=== PATIENT | female | born 1950 | race Caucasian/White ===

== ENCOUNTER 2019-09-18 15:43 | Day surgery (SDC) | payer MEDICARE, BC, OTHER ==
[2019-09-18 08:49] LABS: INTERNATIONAL RATION (INR) 1.02; PROTHROMBIN TIME 13.5 SEC (11.4-15.4)
--- NOTE | 2019-09-18 13:51 | Operative Report ---
Operative Report DATE OF SURGERY: 09/18/19 PREOPERATIVE DIAGNOSIS: Right knee osteoarthritis, primary POSTOPERATIVE DIAGNOSIS: Right primary knee osteoarthritis OPERATION: Right total knee arthroplasty SURGEON: RIGO BECK JR ANESTHESIA: Spinal COMPLICATIONS: None ESTIMATED BLOOD LOSS: 20 cc PROCEDURE: Components: Anurag total knee: #4 femur, 5 x 11 PS tibia, and a 32 patella, 100 mm tibial stem BRIEF HISTORY: 69 year old female with severe degenerative arthritis of right knee, which has failed conservative treatment and has elected for a total knee arthroplasty. She was having severe debility including difficulty ambulating and decreased quality of life due to the increased difficulty with performing activities of daily living such as walking moderate distances, shopping, and getting in and out of her car. Risks include but are not limited to bleeding, infection, anesthesia, , injury to nerve or vessel, pain, scar, leg length inequality, dislocation, future surgery, and blood clots. Patient read through the pre-op counseling form and signed and solicited for surgery on their right knee. OPERATIVE PROCEDURE: Patient was brought to the operating room on and underwent spinal anesthesia. After proper anesthesia was obtained, patient was positioned, padded, prepped, and draped in the usual sterile fashion on the operating room table. 2 grams of Ancef and 1 g of vancomycin were given. Appropriate time out was performed. Anterior incision and medial-parapatella approach was performed. Severe deg enerative arthritis was noted. Osteophytes were removed from the femur and tibia, and the remainder of the ACL and PCL were removed. The proximal tibia was then prepared and cut perpendicular to the tibial shaft axis and measured to a 5 tibia. The distal femur was drilled, the canal was irrigated and the distal femoral guide was placed. The distal femur was cut to 5 degrees of varus. The tensor was placed in flexion and the femur was sized to 4 and the block pins were placed. The AP block was placed and anterior-posterior cuts and chamfer cuts were made. This was followed with the notch cut guide and the notch cut was made. Posterior osteophytes were removed and the flexion gap measured to be printed for a 9 mm polyethylene. The tensor was placed in extension and the extension gap was balanced with releases until the goniometer on the tensor measured to 0. In her case no releases were required, a 0 was appreciated upon initial application of the tensor. A 9 block was used to confirm symmetric flexion and extension gaps. A trial femur placed which had excellent fit. A tibial baseplate and poly-was floated and taken through a range of motion, which was found to be slightly loose in extension with a 9 mm poly-but an 11 mm poly- produced optimal balance. The baseplate was then rotated to the ideal position, pinned, and the tibia was reamed to accept a short stem (this is due to the patient's obesity and providing extra protection against tibial subsidence). The patella AP aspect was measured to 22 mm and patella was cut parallel to the anterior patella surface. A 32 mm button was placed medially and superiorly as possible and the patella-button construct again measured 24 mm. The patella tracked well. No need for a lateral release. Pulsatile irrigation of the cesar and soft tissue surfaces was performed as well as a Betadine soak followed by further copious antibiotic pulsatile irrigation. The cesar surfaces were cleaned and dried, and cementation of the femur, tibia, and patella. Periarticular injection with Marcaine and Toradol was performed. The knee was irrigated with antibiotic solution, betadine solution, and antibiotic solution. A gram of Vancomycin was placed intra-articularly. The extensor mechanism was closed with number 2 Stratofix along with 0 Vicryl tacking stitches, the subcutaneous tissue closed with 2-0 Vicryl and the skin closed with 3-0 running monocryl. A silver dressing was applied. Followed by a soft bulky dressing All needle sponge and instrument counts were correct. Patient was awakened from sedation anesthesia and taken to recovery room in good condition. Rigo Beck DO
--- NOTE | 2019-09-18 14:28 | RADIOLOGY REPORT (SQ) ---
EXAM DESCRIPTION: PELVIS AP COMPLETED DATE/TIME: 09/18/2019 2:15 pm REASON FOR STUDY: POST OP M17.11 UNILATERAL PRIMARY OSTEOARTHRITIS, RIGHT KNEE COMPARISON: None. NUMBER OF VIEWS: One view TECHNIQUE: AP Pelvis LIMITATIONS: None. FINDINGS: MINERALIZATION: Normal. HIPS: No acute fracture or dislocation. No worrisome bone lesions. PELVIS AND SACRUM: No acute fracture or dislocation. No worrisome bone lesions. PUBIS AND ISCHIUM: No acute fracture. LOWER LUMBAR SPINE: Degenerative disc disease and spondylosis. SOFT TISSUES: No findings. OTHER: No other significant finding. IMPRESSION: Normal pelvis. Lumbar degenerative changes. COMMENT: Pelvic fractures are often occult on plain radiographs. If strong clinical suspicion for f racture, recommend CT or MR. TECHNICAL DOCUMENTATION: JOB ID: [id number] 3322[employer]- All Rights Reserved Reading location - IP/workstation name: [email or web address]
--- NOTE | 2019-09-18 14:29 | RADIOLOGY REPORT (SQ) ---
EXAM DESCRIPTION: KNEE RIGHT 2 VIEWS COMPLETED DATE/TIME: 09/18/2019 2:15 pm REASON FOR STUDY: POST OP M17.11 UNILATERAL PRIMARY OSTEOARTHRITIS, RIGHT KNEE COMPARISON: None. NUMBER OF VIEWS: Two views. TECHNIQUE: AP and lateral radiographic images acquired of the right knee. LIMITATIONS: None. FINDINGS: Postoperative imaging shows a total knee arthroplasty in good position. IMPRESSION: Total knee arthroplasty. Refer to operative note for further information. TECHNICAL DOCUMENTATION: JOB ID: [id number] [employer]- All Rights Reserved Reading location - IP/workstation name: [email or web address]
[~2019-09-18 15:43] MED LIST: ACETAMINOPHEN 325 MG TABLET ONE; ACETAMINOPHEN 325 MG TABLET PO PRN; ASPIRIN 325 MG TABLET PO PRN; BACITRACIN INJ 50,000 UNIT VIAL IR ONE; BACITRACIN INJ 50,000 UNIT VIAL ONE; BUPIVACAINE HCL 0.25 % INJ/PF (2.5 MG/1 ML) 30 ML VIAL ONE; BUPIVACAINE HCL 0.5 % INJ/PF 30 ML SDV INJ ONE; CEFAZOLIN SODIUM 2 GM in DEXTROSE 5%-WATER 100 ML IV PRN; CEFAZOLIN SODIUM 2 GM in DEXTROSE 5%-WATER 100 ML IV SCH; CELECOXIB 200 MG CAPSULE ONE; CELECOXIB 200 MG CAPSULE PO PRN; DIPHENHYDRAMINE HCL 25 MG CAPSULE PO PRN; DIPHENHYDRAMINE HCL 50 MG/ML VIAL IV PRN; DOCUSATE SODIUM 100 MG CAPSULE PO PRN; FENTANYL CITRATE INJ/PF 100 MCG/2 ML AMPUL IV PRN; FENTANYL CITRATE INJ/PF 100 MCG/2 ML AMPUL ONE; GABAPENTIN 100 MG CAPSULE ONE; GABAPENTIN 100 MG CAPSULE PO PRN; GENTAMICIN SULFATE INJ 80 MG/2 ML VIAL IV ONE; GENTAMICIN SULFATE INJ 80 MG/2 ML VIAL ONE; KETOROLAC TROMETHAMINE 60 MG/2 ML SDV ONE; KETOROLAC TROMETHAMINE INJ/PF 30 MG/1 ML SDV INJ ONE; LACTATED RINGERS 1000 ML IV PRN; LIDOCAINE 0.5% INJ-PF (5 MG/ML) 50 ML SDV SUBCUT PRN; LIDOCAINE 1% INJ (10 MG/ML) 10 ML MDV INJ ONE; LIDOCAINE 1% INJ-PF (10 MG/ML) 30 ML SDV ONE; LIDOCAINE 2%/EPINEPHRINE INJ 20 ML VIAL ONE; MIDAZOLAM 2 MG/2 ML INJ ONE; NORMAL SALINE 1000 ML 1,000 ML IV PRN; ONDANSETRON 4 MG TAB.RAPDIS PO PRN; ONDANSETRON HCL INJ/PF 4 MG/2 ML SDV IV PRN; ONDANSETRON HCL INJ/PF 4 MG/2 ML SDV ONE; OXYCODONE HCL IR 5 MG TABLET PO PRN; OXYCODONE HCL SR 10 MG TABLET PO ONE; OXYCODONE HCL SR 10 MG TABLET PO PRN; PROMETHAZINE HCL INJ 25 MG/1 ML VIAL IV PRN; PROPOFOL INJ 200 MG/20 ML VIAL IV ONE; ROPIVACAINE HCL 0.5% INJ/PF (5 MG/1 ML) 30 ML SDV ONE; SCOPOLAMINE HYDROBROMIDE 1.5 MG PATCH.TD72 TD PRN; TRAMADOL HCL 50 MG TABLET ONE; TRAMADOL HCL 50 MG TABLET PO PRN; TRANEXAMIC ACID INJ/PF 1,000 MG/10 ML SDV IV PRN; TRANEXAMIC ACID INJ/PF 1,000 MG/10 ML SDV ONE; VANCOMYCIN HCL 1,000 MG in DEXTROSE 5%-WATER 250 ML IV PRN; VANCOMYCIN HCL INJ 1000 MG VIAL IV ONE; VANCOMYCIN HCL INJ 1000 MG VIAL ONE; ZOLPIDEM TARTRATE 5 MG TABLET PO PRN
[2019-09-18] MEDS: OMEGA-3 ACID ETHYL ESTERS 1 GM CAPSULE PO SCH (17:54)
[2019-09-18] MEDS: KETOROLAC TROMETHAMINE INJ/PF 30 MG/1 ML SDV IV SCH ×2 (17:55→22:28)
[2019-09-18] MEDS: ACETAMINOPHEN 325 MG TABLET PO SCH ×2 (17:55→22:29)
[2019-09-18] MEDS: CEFAZOLIN SODIUM 2 GM in DEXTROSE 5%-WATER 100 ML IV SCH (17:58)
[2019-09-18] MEDS: OXYCODONE HCL IR 5 MG TABLET PO PRN (19:38)
[2019-09-18] MEDS: MORPHINE SULFATE 10 MG/ML INJ IV PRN ×2 (19:38→22:36)
[2019-09-18] MEDS ORDERED: SIMVASTATIN 10 MG TABLET PO SCH (22:00)
[2019-09-18] MEDS ORDERED: MELATONIN 5 MG TABLET PO SCH (22:00)
[2019-09-18] MEDS: GABAPENTIN 100 MG CAPSULE PO SCH (22:29)
[2019-09-19] MEDS: MORPHINE SULFATE 10 MG/ML INJ IV PRN ×2 (02:04→04:13)
[2019-09-19] MEDS: OXYCODONE HCL IR 5 MG TABLET PO PRN (02:06)
[2019-09-19] MEDS: CEFAZOLIN SODIUM 2 GM in DEXTROSE 5%-WATER 100 ML IV SCH (04:11)
[2019-09-19] MEDS ORDERED: LEVOTHYROXINE SODIUM 0.05 MG TABLET PO SCH (06:00)
[2019-09-19] MEDS ORDERED: PANTOPRAZOLE SODIUM 20 MG TABLET.DR PO SCH (06:00)
--- NOTE | 2019-09-19 07:35 | PDOC PROGRESS REPORT ---
Subjective Progress Note for:: 09/19/19 Subjective:: She is doing very well this morning with minimal pain. She reports increased quadriceps activity as well as the ability to ambulate overnight. Overall she is very pleased with her current state. No acute events overnight Reason For Visit: RIGHT TOTAL KNEE Physical Exam Vital Signs: Temp Pulse Resp BP Pulse Ox 98.1 F 80 15 102/54 L 95 09/19/19 00:28 09/19/19 00:28 09/19/19 00:28 09/19/19 00:28 09/19/19 00:28 Intake & Output 09/18/19 09/19/19 09/20/19 06:59 06:59 06:59 Intake Total 3106 Balance 3106 Weight 114.31 kg Physical Exam: General appearance: PRESENT: no acute distress, cooperative, morbidly obese Head exam: PRESENT: atraumatic, normocephalic Eye exam: PRESENT: EOMI Ear exam: PRESENT: normal external ear exam Mouth exam: PRESENT: neck supple Neck exam: ABSENT: tracheal deviation Respiratory exam: PRESENT: symmetrical, unlabored. ABSENT: accessory muscle use, wheezes Pulses: PRESENT: normal radial pulses, normal dorsalis pedis pul Vascular exam: PRESENT: normal capillary refill GI/Abdominal exam: ABSENT: distended, firm Extremities exam: PRESENT: full ROM of bilateral shoulders, elbows wrists, knees, hips and ankles without pain Musculoskeletal exam: PRESENT: full ROM, normal inspection of all 4 extremities aside from that noted below. Neurological exam: PRESENT: alert, awake, oriented to person, oriented to place, oriented to time Psychiatric exam: PRESENT: appropriate affect. ABSENT: agitated Focused psych exam: ABSENT: catatonic Skin exam: PRESENT: intact. ABSENT: dry All as above aside from that noted in the HPI and the following: Right lower extremity - Pulses 2+ distally -Compartments soft -Wound dressing clean dry and intact no drainage in appropriate swelling for postop day -Sensation grossly intact to L3-4-5 S1 -Motor grossly intact to EHL TA gastroc and quad - Able to perform quad extension and elevate heel off of bed. Results Laboratory Results: 09/18/19 08:17 09/18/19 08:17 Potassium 4.8 Impressions: Knee X-Ray 09/18/19 00:00 IMPRESSION: Total knee arthroplasty. Refer to operative note for further information. Pelvis X-Ray 09/18/19 00:00 IMPRESSION: Normal pelvis. Lumbar degenerative changes. Assessment & Plan - Diagnosis (1) Status post total right knee replacement Is this a current diagnosis for this admission?: Yes Plan: - 2 doses of Ancef postoperatively q 8 hours to complete 24 hours perioperatively -Weightbearing as tolerated, no precautions, encourage out of bed [facility] for ADL training - PT/OT -aspirin 325 daily for DVT prophylaxis for 6 weeks -multimodal pain management to avoid excessive narcotics, including gabapentin, tramadol, Toradol, acetaminophen. -Dressing should not be removed for 7 to 10 days until seen in the office -May shower with the dressing intact, if it starts to come off she should not get the incision wet. -I would like to follow the patient my office within the next 7 to [address] [place] [address]. in [place] office #: [phone] - Time Time Spent with patient: 15-24 minutes
[2019-09-19] MEDS ORDERED: (PENDING PHARMACY ID) (Acetaminophen [Tylenol Extra Strength 500 Mg Tablet] 2 TAB) PO SCH (08:00)
[2019-09-19 08:49] VITALS: BP 106/49
[2019-09-19] MEDS: ACETAMINOPHEN 325 MG TABLET PO SCH (09:17)
[2019-09-19] MEDS: GABAPENTIN 100 MG CAPSULE PO SCH (09:18)
[2019-09-19] MEDS: OMEGA-3 ACID ETHYL ESTERS 1 GM CAPSULE PO SCH (09:19)
[2019-09-19] MEDS: KETOROLAC TROMETHAMINE INJ/PF 30 MG/1 ML SDV IV SCH (09:20)
[2019-09-19] MEDS ORDERED: MULTIVITAMIN TABLET PO SCH (10:00)
[2019-09-19] MEDS ORDERED: POLYETHYLENE GLYCOL 3350 POWDER 17 GM/1 PACKET PO SCH (10:00)
[2019-09-19] MEDS ORDERED: LOSARTAN POTASSIUM 50 MG TABLET PO SCH (10:00)
[2019-09-20] MEDS ORDERED: CELECOXIB 200 MG CAPSULE PO SCH (10:00)
== END 2019-09-19 11:20 | disposition home or self-care (01) ==
LOC: OROUT 15:43 → UNDODISIN 09-19 11:20
PROVIDERS: ATTEND Orthopaedic Surgery
DX: M17.0 Bilateral primary osteoarthritis of knee (principal); I10 Essential (primary) hypertension; Z79.01 Long term (current) use of anticoagulants; E03.9 Hypothyroidism, unspecified; E66.9 Obesity, unspecified; Z68.41 Body mass index [BMI] 40.0-44.9, adult; Z86.718 Personal history of other venous thrombosis and embolism; Z86.711 Personal history of pulmonary embolism
CPT/HCPCS: 36415; 84132; 85610; 85730; 73560; 72170; 97110; 97116; 97163; 01402; 27440; C1776 ×4; C1713 ×3; C1887; A9270 ×19; J2795; J2250; J3490 ×4; J0690 ×2; J1885 ×3; J1580; J2270 ×2; J2405; J7060 ×3; J7030; J2704; J3370; J3010